=== PATIENT | male | born 1960 | race Caucasian/White ===

== ENCOUNTER 2019-05-22 09:58 | Emergency (ER) | payer OTHER, SELFPAY ==
[~2019-05-22] VITALS: Ht 185.4 cm; Wt 113.0 kg
[2019-05-22 10:43] LABS: BASOPHILS # (AUTO) 0.01 x10^3/uL (0-0.1); BASOPHILS % (AUTO) 0 % (0-1); EOSINOPHILS # (AUTO) 0.01 x10^3/uL (0-0.4); EOSINOPHILS % (AUTO) 0 % (1-7); LYMPHOCYTES # (AUTO) 0.76 x10^3/uL (1-3.4); LYMPHOCYTES % (AUTO) 7 % (22-44); MD NO; MEAN CORPUSCULAR VOLUME 93.7 fL (81-97); MEAN PLATELET VOLUME 10.2 fL (7.4-10.4); MONOCYTES % (AUTO) 8 % (2-9); NEUTROPHILS # (AUTO) 9.67 x10^3/uL (1.8-6.8); NEUTROPHILS % (AUTO) 85 % (42-75); PLATELET COUNT 132 x10^3/uL (130-400); RED BLOOD COUNT 4.54 x10^6/uL (4.38-5.82); RED CELL DISTRIBUTION WIDTH 13.9 % (9.4-14.8)
[2019-05-22 10:50] LABS: MICROSCOPIC AUTO
[2019-05-22 10:54] LABS: ALANINE AMINOTRANSFERASE 42 U/L (12-78); ALBUMIN 4.1 g/dL (3.4-5.0); ANION GAP 7 mmol/L (5-15); CALCIUM 8.7 mg/dL (8.5-10.1); CHLORIDE 106 mmol/L (98-107); CREATININE 1.47 mg/dL (0.7-1.3)
[2019-05-22 10:55] LABS: CULTURE INDICATED? NO
--- NOTE | 2019-05-22 10:55 | NUR ---
pt presented to ed with left mid quadrant abd pain since last night pt with intermittent vomitting. assessment completed. call light in reach. report given to tatiana rivas.
[2019-05-22 10:56] LABS: ALKALINE PHOSPHATASE 63 U/L (45-117); BILIRUBIN,TOTAL 0.8 mg/dL (0.2-1.0); TOTAL PROTEIN 8.4 g/dL (6.4-8.2)
--- NOTE | 2019-05-22 10:59 | NUR ---
bedside report from Conchis RN, pt resting in [facility], on monitor. ua sent from triage
[2019-05-22 12:02] VITALS: BP 162/76
--- NOTE | 2019-05-22 12:04 | NUR ---
pt resting in [facility], awaiting recheck. pt to be discharged
--- NOTE | 2019-05-22 12:23 | NUR ---
pt medicated per mar, awaiting discharge paperwork
[2019-05-22] MEDS ORDERED: ONDANSETRON ODT 4 MG PO ONE (13:00)
[2019-05-22] MEDS ORDERED: HYDROmorphone 2 MG/ML, 1ML IM ONE (13:00)
== END 2019-05-22 12:30 | disposition home or self-care (01) ==
LOC: ED 10:48
DX: N13.2 Hydronephrosis with renal and ureteral calculous obstruction (principal); R31.9 Hematuria, unspecified; R11.10 Vomiting, unspecified
CPT/HCPCS: 36415; 74176; 80053; 81001; 83690; 85025; 96372; 99284; J1170; Q0162